=== PATIENT | male | born 1950 | race Caucasian/White ===

== ENCOUNTER 2025-05-31 17:14 | Observation (INO) | payer OTHER, SELFPAY ==
[2025-05-31] VITALS (8 sets, daily range): BP systolic 114–144; BP diastolic 70–76
--- NOTE | 2025-05-31 14:26 | ED.CVA ---
History of Present Illness
<Karyn Van PA-C - Last Filed: 05/31/25 20:50>
General
Chief Complaint: CVA/TIA Symptoms
Source: patient
Exam Limitations: none
Time Seen by Provider: 05/31/25 14:05
Nursing documentation reviewed up to this point in time: agreed with
Onset of Stroke Symptoms
Onset of symptoms known: Yes
Date of onset of symptoms: 05/31/25
History of Present Illness
History of Present Illness:
Patient is a 75-year-old male with history hypertension, hyperlipidemia, diabetes, pachymeningitis who presents to the emergency department after episode of transient slurred speech and right-sided facial droop this morning. Patient states that his
daughter came over to his house around 11:30 AM and noticed that he had a right sided facial droop and was slurring his words. Patient's returned home around noon and by that point his symptoms had improved. Patient did not notice the
symptoms himself.
They came to the emergency department for further evaluation. He is asymptomatic upon arrival.
Patient denies any recent fall or trauma. No headache or neck pain. No changes in vision, unilateral weakness in extremities, or decreased sensation. Patient denies any dizziness, ataxia, dysarthria. No recent fever or chills. He denies any
recent chest pain, shortness of breath, or palpitations. Patient has no known history of cerebrovascular disease.
Of note�patient did recently have a cochlear implant placed at the end of April. However, it has not been activated yet. That is planned for June 2025.
Review of Systems
<Karyn Van PA-C - Last Filed: 05/31/25 20:50>
Review of Systems
Allergies reviewed?: Yes
All Other Systems: ROS reviewed and negative except as documented in HPI and ROS
Phy Exam
<Karyn Van PA-C - Last Filed: 05/31/25 20:50>
Physical Exam
Physical Exam:
Vitals: Mildly hypertensive on arrival, otherwise vital signs stable. Afebrile
General: Patient is well appearing, no acute distress
Skin: Warm and dry, no rashes or lesions
Head: Normocephalic, atraumatic
Eyes: Sclera nonicteric. Pupils equal round reactive to light bilaterally. EOMs intact. No nystagmus.
Throat: Protecting airway
Neck: Normal ROM, no cervical spine tenderness, no meningismus
Cardiac: Regular rate and rhythm, no murmurs.
Pulm: Normal respiratory effort. Lungs clear bilaterally
Abdomen: Nondistended. Soft and nontender
Extremities: No evidence of cyanosis or edema. Strength 5/5 in bilateral upper and lower extremities.
Neuro: AAOx3. CN II-XII grossly intact. No facial droop or asymmetry. Normal [id number] no focal neurologic deficits.
Psychiatric: Normal affect.
Course
<Karyn Van PA-C - Last Filed: 05/31/25 20:50>
Orders/Labs/Results
Orders:
Orders
05/31/25 12:[address] [CT Head W/o Iv Contrast] Urgent
Comment:
Reason For Exam: CVA/TIA SYMPTOMS
05/31/25 14:16
Electrocardiogram (*1) Urgent
Reason for Study: TIA/Stroke
EKG- Treatment ONCE
0.9% Sodium Chloride 500 ml [Nss] 500 ml IV BOLUS
05/31/25 14:26
Complete Blood Count/With Diff Urgent
Comprehensive Metabolic Panel Urgent
Glycohemoglobin (HgbA1c) Urgent
05/31/25 15:07
CT Head & Neck Angio W/wo IV Urgent
Comment:
Reason For Exam: Transient right sided facial droop, slurred speech
05/31/25 15:16
NEUROLOGY CONSULT Urgent
Consulting Provider: Ledesma,Abraham
Was physician already notified: Yes
05/31/25 15:19
Aspirin Chewable [Low Strength Aspirin] 324 mg PO NOW STA
05/31/25 16:00
Aspirin Chewable [Low Strength Aspirin] 81 mg PO NOW STA
Atorvastatin [Lipitor] 40 mg PO NOW STA
Clopidogrel Bisulfate [Plavix] 75 mg PO NOW STA
05/31/25 16:37
Admit/Transfer Patient As Directed
Co-Sign Provider:
Level of Care: Observation services
Assign to:: Telemetry
Physician / Group: [email or web address]
Diagnosis: TIA /CVA
Reason for Telemetry: CVA/TIA
Date to Stop Telemetry: 06/03/25
Time to Stop Telemetry: 11:00
Reason for Hospitalization: Evaluation for TIA/CVA for witnessed transient episode of slurred speech and R
facial droop this morning around 11 AM a
Expected length of stay greater than two midnights?: Yes
05/31/25 16:39
Code Status As Directed
Resuscitation Status: Full Code
05/31/25 17:49
Acetaminophen [Tylenol/Feverall] 650 mg RECTAL Q4HPRN PRN
Acetaminophen [Tylenol] 650 mg PO Q4HPRN PRN
Acetaminophen [Tylenol] 650 mg PO Q6HPRN PRN mild pain
Dextrose 50%-Water [Dextrose 50% Syringe] 12.5 grams IV [id number] PRN
Glucagon [GlucaGen] 1 mg IM PRN PRN
05/31/25 17:49
Echo 2D MMode Color/Doppler Routine
Reason for Study: stroke/TIA
Case Management Consult ONCE
Case Management Consult: Discharge Planning
Comment: stroke/tia
DIETARY IP CONSULT Routine
Reason for Consult: stroke/TIA
Assistant Pastry Chef Urgent
MR Brain Without Contrast Routine
Comment:
Reason For Exam: stroke/TIA
Recent pill cam endoscopy?: No
Activity As Directed
Activity Level: With Assistance
Bedside Glucose Monitoring As Directed
Frequency: AC&HS
Additional Instructions:: Change to q6h if pt on TPN, tube feeding or not eating
NIH Stroke Scale As Directed
Directions: Per protocol
Comment: every shift and with any change in condition or mental status
Neurological Checks As Directed
Frequency: q4h
Additional Instructions:: q4h x 24h upon admission to the floor, then qshift & with any change in condition
and mental status
Patient Education As Directed
Type: Stroke education packet
Comment: provide to patient and family
Pneumatic Compression Sleeves As Directed
Type: Knee high
Vital Signs As Directed
Frequency: Per unit guidelines
Call for:: BP greater than 180/105 mmHg or less than 100/60 mmHg
Ot Eval And Treat Routine
Pt Eval And Treat Routine
Activity Level: With Assistance
Speech Therapy Eval & Treat Routine
DX Deep Vein Thrombosis Video Routine
05/31/25 22:00
insulin glargine [Lantus Solostar U-100 Insulin] 10 unit SC HS
06/01/25 06:00
Cardiovascular Evaluation IN AM
Comprehensive Metabolic Panel Routine
Glycohemoglobin (HgbA1c) IN AM
06/01/25 07:30
Insulin Aspart Corrective Low [Novolog Flexpen-Low Resistance] See Protocol SC AC
06/01/25 08:00
Aspirin Chewable [Low Strength Aspirin] 81 mg PO DAILY
Clopidogrel Bisulfate [Plavix] 75 mg PO DAILY
Cyanocobalamin [Vitamin B-12] 500 mcg PO DAILY
06/01/25 18:00
Atorvastatin [Lipitor] 40 mg PO QPM
06/03/25 11:00
DC Protocol for Telemetry ONCE
Abnormal Lab Results
05/31/25
14:26
RBC 4.67 L 10^6/uL
(4.70-6.10)
MCH 31.5 H pg
(27.0-31.0)
Absolute Monos (auto) 0.8 H 10^3/uL
(0.1-0.6)
Glucose 161 H mg/dl
(70-99)
05/31/25 14:26
05/31/25 14:26
Vital Signs
Initial and Last Documented VS:
Initial Vital Signs
Temp Pulse Resp BP Pulse Ox
98.8 F 71 18 143/72 99
05/31/25 12:18 05/31/25 12:18 05/31/25 12:18 05/31/25 12:18 05/31/25 12:18
Last Documented Vital Signs
Temp Pulse Resp BP Pulse Ox
98.1 F 74 14 144/75 98
05/31/25 19:35 05/31/25 19:35 05/31/25 19:35 05/31/25 19:35 05/31/25 19:35
<Austen Sanchez, - Last Filed: 05/31/25 15:19>
Orders/Labs/Results
Orders:
Orders
05/31/25 12:[address] [CT Head W/o Iv Contrast] Urgent
Comment:
Reason For Exam: CVA/TIA SYMPTOMS
05/31/25 14:16
Electrocardiogram (*1) Urgent
Reason for Study: TIA/Stroke
EKG- Treatment ONCE
0.9% Sodium Chloride 500 ml [Nss] 500 ml IV BOLUS
05/31/25 14:26
Complete Blood Count/With Diff Urgent
Comprehensive Metabolic Panel Urgent
Glycohemoglobin (HgbA1c) Urgent
05/31/25 15:07
CT Head & Neck Angio W/wo IV Urgent
Comment:
Reason For Exam: Transient right sided facial droop, slurred speech
05/31/25 15:16
NEUROLOGY CONSULT Urgent
Consulting Provider: Abraham Ledesma
Was physician already notified: Yes
05/31/25 15:19
Aspirin Chewable [Low Strength Aspirin] 324 mg PO NOW STA
05/31/25 16:00
Aspirin Chewable [Low Strength Aspirin] 81 mg PO NOW STA
Atorvastatin [Lipitor] 40 mg PO NOW STA
Clopidogrel Bisulfate [Plavix] 75 mg PO NOW STA
05/31/25 16:37
Admit/Transfer Patient As Directed
Co-Sign Provider:
Level of Care: Observation services
Assign to:: Telemetry
Physician / Group: [email or web address]
Diagnosis: TIA /CVA
Reason for Telemetry: CVA/TIA
Date to Stop Telemetry: 06/03/25
Time to Stop Telemetry: 11:00
Reason for Hospitalization: Evaluation for TIA/CVA for witnessed transient episode of slurred speech and R
facial droop this morning around 11 AM a
Expected length of stay greater than two midnights?: Yes
05/31/25 16:39
Code Status As Directed
Resuscitation Status: Full Code
05/31/25 17:49
Acetaminophen [Tylenol/Feverall] 650 mg RECTAL Q4HPRN PRN
Acetaminophen [Tylenol] 650 mg PO Q4HPRN PRN
Acetaminophen [Tylenol] 650 mg PO Q6HPRN PRN mild pain
Dextrose 50%-Water [Dextrose 50% Syringe] 12.5 grams IV [id number] PRN
Glucagon [GlucaGen] 1 mg IM PRN PRN
05/31/25 17:49
Echo 2D MMode Color/Doppler Routine
Reason for Study: stroke/TIA
Case Management Consult ONCE
Case Management Consult: Discharge Planning
Comment: stroke/tia
DIETARY IP CONSULT Routine
Reason for Consult: stroke/TIA
Assistant Pastry Chef Urgent
MR Brain Without Contrast Routine
Comment:
Reason For Exam: stroke/TIA
Recent pill cam endoscopy?: No
Activity As Directed
Activity Level: With Assistance
Bedside Glucose Monitoring As Directed
Frequency: AC&HS
Additional Instructions:: Change to q6h if pt on TPN, tube feeding or not eating
NIH Stroke Scale As Directed
Directions: Per protocol
Comment: every shift and with any change in condition or mental status
Neurological Checks As Directed
Frequency: q4h
Additional Instructions:: q4h x 24h upon admission to the floor, then qshift & with any change in condition
and mental status
Patient Education As Directed
Type: Stroke education packet
Comment: provide to patient and family
Pneumatic Compression Sleeves As Directed
Type: Knee high
Vital Signs As Directed
Frequency: Per unit guidelines
Call for:: BP greater than 180/105 mmHg or less than 100/60 mmHg
Ot Eval And Treat Routine
Pt Eval And Treat Routine
Activity Level: With Assistance
Speech Therapy Eval & Treat Routine
DX Deep Vein Thrombosis Video Routine
05/31/25 22:00
insulin glargine [Lantus Solostar U-100 Insulin] 10 unit SC HS
06/01/25 06:00
Cardiovascular Evaluation IN AM
Comprehensive Metabolic Panel Routine
Glycohemoglobin (HgbA1c) IN AM
06/01/25 07:30
Insulin Aspart Corrective Low [Novolog Flexpen-Low Resistance] See Protocol SC AC
06/01/25 08:00
Aspirin Chewable [Low Strength Aspirin] 81 mg PO DAILY
Clopidogrel Bisulfate [Plavix] 75 mg PO DAILY
Cyanocobalamin [Vitamin B-12] 500 mcg PO DAILY
06/01/25 18:00
Atorvastatin [Lipitor] 40 mg PO QPM
06/03/25 11:00
DC Protocol for Telemetry ONCE
Abnormal Lab Results
05/31/25
14:26
RBC 4.67 L 10^6/uL
(4.70-6.10)
MCH 31.5 H pg
(27.0-31.0)
Absolute Monos (auto) 0.8 H 10^3/uL
(0.1-0.6)
Glucose 161 H mg/dl
(70-99)
05/31/25 14:26
05/31/25 14:26
Vital Signs
Initial and Last Documented VS:
Initial Vital Signs
Temp Pulse Resp BP Pulse Ox
98.8 F 71 18 143/72 99
05/31/25 12:18 05/31/25 12:18 05/31/25 12:18 05/31/25 12:18 05/31/25 12:18
Last Documented Vital Signs
Temp Pulse Resp BP Pulse Ox
98.1 F 74 14 144/75 98
05/31/25 19:35 05/31/25 19:35 05/31/25 19:35 05/31/25 19:35 05/31/25 19:35
<Karyn Van PA-C - Last Filed: 05/31/25 20:50>
MDM/Problems Addressed
Differential Diagnosis Includes:
Not limited to: TIA/CVA, brain mass, Hoffmann's palsy, etc.
MDM/Problems Addressed:
75-year-old male presenting after approximately 30-minute episode of reported right-sided facial droop and slurred speech. Symptoms completely resolved by arrival to ED. No recent head trauma. Vitals stable on arrival. On exam, patient is
well-appearing and in no distress. There is no evidence of head or neck trauma. Cardio/pulmonary assessment unremarkable. He is alert and oriented x 3 without any focal neurologic deficits. I do not appreciate any slurred speech or facial droop
on my exam. He has equal strength and normal cerebellar exam. NIH scale of 0.
Symptoms concerning for TIA. Noncontrast head CT was obtained in triage without any acute abnormalities. His lab work is unremarkable. EKG reveals normal sinus rhythm without any evidence of acute ischemia or arrhythmia. I did discuss with
neurology who was down to evaluate patient at bedside. Ultimately�with concern for TIA, will plan to admit patient for further workup including CTA head/neck, cardiac echo, etc.
Patient given ASA, Plavix, Lipitor in emergency department under direction of neurology. Patient accepted to hospitalist service in stable condition for evaluation and management.
Chronic conditions affecting care:
Hypertension, diabetes
Acute Exacerbation and/or Progression of Chronic Illness:
N/A
<Karyn Van PA-C - Last Filed: 05/31/25 20:50>
*Radiology
Radiology exam reviewed: radiology read reviewed
*Pulse Oximetry
SaO2: 99
Oxygen Mode of Delivery: Room air
Patient hypoxic: no
*EKG
Interpreted by ED Provider?: Yes
EKG Intrepretation Date: 05/31/25
Interpretation: abnormal
Comparison EKG: no comparison EKG present
Heart Rate: 71
Rate: normal
Rhythm: sinus
[place]: normal axis
Interval: normal QT interval
QRS Pattern: low voltage
Ischemia: non-specific ST changes
*Automotive Worker Foreman Interpretation
Rate: Automotive Worker Foreman- N/A
*Critical Care Note
Total Time (30-74mins, 75-104mins- exclusive of procedures): Not Applicable
<Karyn Van PA-C - Last Filed: 05/31/25 20:50>
Patient Management
Discussion with other providers: Hospitalist and Fermentation Operator (Case discussed with neurology)
ED Attending Note
<Karyn Van PA-C - Last Filed: 05/31/25 20:50>
-
Portions of this chart may have been created with voice recognition software.� Occasional wrong word or��sound alike� substitutions may have occurred due to the inherent limitations of voice recognition software.
<Austen Sanchez DO - Last Filed: 05/31/25 15:19>
ED Attending Note
Patient seen and examined by attending physician: Yes
I performed the substantive portion of visit, reviewed & personally made and approve the management plan that is documented in note by myself or DENNY.: Yes
Discharge Plan
Departure
Patient Disposition: Admit
Date of Disposition: 05/31/25
Time of Disposition: 16:00
Presentation/result/management discussed w/ accepting MD/DO: Hospitalist
Discharge Problem:
TIA (transient ischemic attack)
Interventions
Interventions:
*Risk Screen - Suicide Last Done: 05/31/25 17:51
*General Assessment Last Done: 05/31/25 12:27
*Neglect/Abuse Screening Last Done: 05/31/25 12:27
*ED COVID-19 Vaccine History Last Done: 05/31/25 17:51
*ED Influenza Vaccine History Last Done: 05/31/25 12:27
[facility] Fall Risk Assessment Tool Last Done: 05/31/25 12:38
*Nursing Disposition Last Done: 05/31/25 17:31
ED- Pulmonary Assessment Last Done: 05/31/25 15:30
ED- Neurological Assessment Last Done: 05/31/25 12:38
ED- Cardiac Assessment Last Done: 05/31/25 12:38
ED Swallowing Screen Last Done: 05/31/25 12:38
Discharge Date and Time
Discharge Date/Time: 05/31/25 17:47
[2025-05-31] MEDS: NSS 500 IV (14:46)
[2025-05-31 14:49] LABS: Hematocrit 42.2 % (39.0-52.0); Hemoglobin 14.7 g/dL (13.0-18.0); Mean Corp Hgb Conc. 34.8 g/dL (33.0-37.0); Mean Corpuscular Volume 90.4 fL (80.0-94.0); Nucleated Red Blood Cells % 0 % (-); Platelet Count 340 10^3/uL (130-400); Red Cell Dist. Width 12.7 % (11.5-14.5)
[2025-05-31 15:05] LABS: ALT (SGPT) 31 U/L (0-50); AST (SGOT) 22 U/L (17-59); Albumin 4.6 g/dl (3.5-5.0); Alkaline Phosphatase 67 U/L (38-126); Blood Urea Nitrogen 15 mg/dl (9-20); Calcium 9.6 mg/dl (8.4-10.2); Carbon Dioxide 25 mmol/L (22-30); Chloride 105 mmol/L (98-107); Glucose 161 mg/dl (70-99); Potassium 4.2 mmol/L (3.5-5.1); Sodium 138 mmol/L (135-145); Total Protein 7.4 g/dl (6.3-8.2); eGFR > 60.00
--- NOTE | 2025-05-31 15:22 | CON.NEURO4 ---
Consultation - Neurology 4
-
CONSULTING PHYSICIAN: Dr. Abraham Ledesma
REFERRING PHYSICIAN: Karyn Van PA-C
DICTATED BY: Dr. Abraham Ledesma
DATE/TIME OF REQUEST: 05/31/2025
DATE/TIME OF CONSULTATION: 05/31/2025
Reason for Consultation: Slurred speech and right-sided facial droop.
ASSESSMENT AND PLAN:
Patient is a 75 years old male with history hypertension, hyperlipidemia, diabetes, who presents to the emergency department after episode of transient slurred speech and right-sided facial droop this morning. The the patient had a transient
episode of slurred speech and right-sided facial droop at around 11 AM this morning that lasted about half an hour, which was noticed by his daughter. The patient symptoms resolved and he returned to his baseline. The patient denies any focal
numbness or weakness of arms and legs or any problem with walking. 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 The patient is very hard of hearing.
NIHSS = 0. The patient was not a candidate for thrombolytic therapy as he had returned to his baseline. The patient was not on antiplatelet at home.
The history was obtained from the patient and his .
The patient appears to have had a transient ischemic attack. The risk factors include hypertension, hyperlipidemia and diabetes. Their workup is in progress for TIA/stroke.
. CT head does not show acute intracranial abnormality.
. CTA head and neck.
. MRI brain without IV contrast
. Echocardiogram.
. Permissive hypertension SBP < 220
. Aspirin 81 mg daily.
. Plavix 75 mg daily.
. Atorvastatin 40 mg daily.
History of Present Illness:
Patient is a 75-year-old male with history hypertension, hyperlipidemia, diabetes, who presents to the emergency department after episode of transient slurred speech and right-sided facial droop this morning.
The the patient had a transient episode of slurred speech and right-sided facial droop at around 11 AM this morning that lasted about half an hour, which was noticed by his daughter. The patient symptoms resolved and he returned to his baseline.
The patient denies any focal numbness or weakness of arms and legs or any problem with walking. 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 The patient is very hard of hearing.
NIHSS = 0. The patient was not a candidate for thrombolytic therapy as he had returned to his baseline.
The history was obtained from the patient and his .
Past Medical History: Hypertension, hyperlipidemia and diabetes,
Social History:
Alcohol: None
Drug: None
Review of Systems:
The 10 point review of system was negative aside from as given the above history of present illness.
Neurologic Examination:
Alert and oriented x 3,
Speech is clear,
Cranial nerves II to XII grossly intact except that the patient is hard of hearing.
The visual yu are grossly full to confrontation bilaterally,
The motor strength is grossly 5/5 bilaterally in upper and lower extremities,
Sensation grossly intact,
The cerebellar examination does not show limb ataxia.
Medications
-
Active Medications
Generic Name Dose Route Start Last Admin
Trade Name Freq PRN Reason Stop Dose Admin
Acetaminophen 650 mg 05/31/25 17:49
Acetaminophen 650 Mg Rectal Suppository RECTAL 06/28/25 17:48
Q4HPRN PRN
EMANUEL, mild pain, or temp >100.4F
Acetaminophen 650 mg 05/31/25 17:49
Acetaminophen 325 Mg Tablet PO 06/28/25 17:48
Q4HPRN PRN
EMANUEL, mild pain, or temp >100.4F
Aspirin 81 mg 06/01/25 08:00
Aspirin 81 Mg Chewable Tablet PO 06/29/25 07:59
DAILY ISABEL
Atorvastatin Calcium 40 mg 06/01/25 18:00
Atorvastatin (Lipitor) 40 Mg Tablet PO 06/29/25 17:59
QPM ISABEL
Clopidogrel Bisulfate 75 mg 06/01/25 08:00
Clopidogrel 75 Mg Tablet PO 06/29/25 07:59
DAILY ISABEL
Cyanocobalamin (Vitamin B12) 500 mcg 06/01/25 08:00
Cyanocobalamin (Vitamin B-12) 500 Mcg Tablet PO 06/29/25 07:59
DAILY ISABEL
Dextrose 12.5 grams 05/31/25 17:49
Dextrose 50% (0.5 Grams/Ml) 50 Ml Syringe IV 06/28/25 17:48
[id number] PRN
hypoglycemia
Protocol
Glucagon 1 mg 05/31/25 17:49
Glucagon 1 Mg Vial IM 06/28/25 17:48
PRN PRN
hypoglycemia
Protocol
Insulin Glargine 10 units/ 0.1 mls @ 0 mls/hr 05/31/25 22:00
Device SC 06/28/25 21:59
HS ISABEL
As Directed
Insulin Aspart 0 units 06/01/25 07:30
Insulin Aspart Low Resistance 300 Units/3 Ml Pen.Injctr SC 06/29/25 07:29
AC ISABEL
Protocol
Home Medications
�Medication �Instructions �Recorded
acetaminophen 325 mg tablet 650 mg PO Q6HPRN PRN mild pain 05/31/25
(Tylenol)
cholecalciferol (vitamin D3) 25 25 mcg PO DAILY Supplement 05/31/25
mcg (1,000 unit) tablet (Vitamin
D3)
cyanocobalamin (vitamin B-12) 500 500 mcg PO DAILY Supplement 05/31/25
mcg tablet
insulin glargine 100 unit/mL (3 10 unit SC HS Diabetes 05/31/25
mL) subcutaneous pen (Lantus
Solostar U-100 Insulin)
losartan 50 mg tablet 50 mg PO HS Blood Pressure 05/31/25
metformin 500 mg tablet 500 mg PO QPM Diabetes 05/31/25
mirabegron 50 mg tablet,extended 50 mg PO DAILY Urinary Issue 05/31/25
release 24 hr (Myrbetriq)
pyridoxine (vitamin B6) 50 mg 50 mg PO DAILY Supplement 05/31/25
tablet
rosuvastatin 5 mg tablet (Crestor) 5 mg PO HS High Cholesterol 05/31/25
semaglutide 1 mg/dose (4 mg/3 mL) 1 mg SC WE Diabetes 05/31/25
subcutaneous pen injector (Ozempic)
silodosin 8 mg capsule 8 mg PO DAILY Urinary Issue 05/31/25
trospium 60 mg capsule,extended 60 mg PO DAILY Urinary Issue 05/31/25
release 24 hr
Vital Signs and Labs
-
Vital Signs and Labs:
Vital Signs
Temp Pulse Resp BP Pulse Ox
36.4 C 77 18 139/70 97
05/31/25 18:00 05/31/25 18:00 05/31/25 18:00 05/31/25 18:00 05/31/25 18:21
Lab Results
05/31/25 14:26
05/31/25 14:26
Sodium 138 mmol/L (135-145) 05/31/25 14:26
Potassium 4.2 mmol/L (3.5-5.1) 05/31/25 14:26
BUN 15 mg/dl (9-20) 05/31/25 14:26
Glucose 161 mg/dl (70-99) H 05/31/25 14:26
Calcium 9.6 mg/dl (8.4-10.2) 05/31/25 14:26
[2025-05-31] MEDS: LIPITOR 40 MG PO (16:18)
[2025-05-31] MEDS: LOW STRENGTH ASPIRIN 81 MG PO (16:18)
[2025-05-31] MEDS: PLAVIX 75 MG PO (16:18)
--- NOTE | 2025-05-31 16:20 | HPS.HSE ---
Family Physician
-
Family Physician: Nazario Mo MD
Chief Complaint
-
episode of transient slurred speech and right-sided facial droop this morning.
History of Present Illness
75M
PMH: HTN, DM, pachymeningitis seen at ER:
pw episode of transient slurred speech and right-sided facial droop this morning.
- Patient states that his daughter came over to his house around 11:30 AM and noticed that he had a right sided facial droop and was slurring his words.
- Patient's returned home around noon and by that point his symptoms had improved.
- Patient did not notice the symptoms himself.
They came to the emergency department for further evaluation.
He is asymptomatic upon arrival.
Medical History
Past Medical History
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
Past Surgical History: Reports Other
Social History
Alcohol: None
Drug: None
Personal:
Living: With Family
Family History
Family History: Not pertinent
Allergies / Home Medications
Allergies reflects when Allergies were last updated in [employer].
Home Medications with original date entered in [employer]
Allergy/Medication List:
Allergies
Allergy/AdvReac Type Severity Reaction Status Date / Time
Penicillins Allergy Unknown Verified 05/31/25 12:25
Home Medications
acetaminophen 325 mg tablet (Tylenol) 650 mg PO Q6HPRN PRN mild pain 05/31/25
cholecalciferol (vitamin D3) 25 mcg (1,000 unit) tablet (Vitamin D3) 25 mcg PO DAILY Supplement 05/31/25
cyanocobalamin (vitamin B-12) 500 mcg tablet 500 mcg PO DAILY Supplement 05/31/25
insulin glargine 100 unit/mL (3 mL) subcutaneous pen (Lantus Solostar U-100 Insulin) 10 unit SC HS Diabetes 05/31/25
losartan 50 mg tablet 50 mg PO HS Blood Pressure 05/31/25
metformin 500 mg tablet 500 mg PO QPM Diabetes 05/31/25
mirabegron 50 mg tablet,extended release 24 hr (Myrbetriq) 50 mg PO DAILY Urinary Issue 05/31/25
pyridoxine (vitamin B6) 50 mg tablet 50 mg PO DAILY Supplement 05/31/25
rosuvastatin 5 mg tablet (Crestor) 5 mg PO HS High Cholesterol 05/31/25
semaglutide 1 mg/dose (4 mg/3 mL) subcutaneous pen injector (Ozempic) 1 mg SC WE Diabetes 05/31/25
silodosin 8 mg capsule 8 mg PO DAILY Urinary Issue 05/31/25
trospium 60 mg capsule,extended release 24 hr 60 mg PO DAILY Urinary Issue 05/31/25
Review of Systems
-
Constitutional: Reports No Symptoms
EENT: Reports No Symptoms
Respiratory: Reports No Symptoms
Cardiac: Reports No Symptoms
Abdomen/GI: Reports No Symptoms
: Reports No Symptoms
Musculoskeletal: Reports No Symptoms
Skin: Reports No Symptoms
Neurological: Reports No Symptoms
Endocrine: Reports No Symptoms
Hematologic/Lymphatic: Reports No Symptoms
Psych: Reports No Symptoms
Physical Exam
Vital Signs
Vital Signs
Temp Pulse Resp BP Pulse Ox
98.8 F 78 13 136/73 98
05/31/25 12:18 05/31/25 15:42 05/31/25 15:42 05/31/25 15:00 05/31/25 15:42
Physical Exam
General: Well Developed, Well Nourished and No Apparent Distress
HEENT: NormoCephalic, Moist mucous membranes and Atraumatic
Respiratory: Clear
Cardiac: S1/S2 and Regular Rhythm; No Murmur or Rub
GI: Soft, Non Tender, Non Distended and Normal Bowel Sounds; No Organomegaly
Rectal: Deferred by Provider
Musculoskeletal: No Clubbing, No Cyanosis and No Edema
Skin: No Rash
Neuro: Nonfocal/grossly intact
Laboratory Results
-
05/31/25 14:26
05/31/25 14:26
Laboratory Results
Total Bilirubin 0.5 mg/dl (0.2-1.3) 05/31/25 14:26
AST 22 U/L (17-59) 05/31/25 14:26
ALT 31 U/L (0-50) 05/31/25 14:26
Alkaline Phosphatase 67 U/L (38-126) 05/31/25 14:26
Data Reviewed
-
CT Scan: Report Reviewed by me
Medical Tests (Nuc Med, Echo, EKG etc): Report Reviewed by me
Lab Data: Labs Reviewed by me
Impression/Plan
-
Vital Signs
Temp Pulse Resp BP Pulse Ox
98.8 F 78 13 136/73 98
05/31/25 12:18 05/31/25 15:42 05/31/25 15:42 05/31/25 15:00 05/31/25 15:42
05/31/25
14:26
WBC 9.0
Hgb 14.7
Plt Count 340
Sodium 138
Creatinine 0.8
eGFR > 60.00
Glucose 161 H
Total Bilirubin 0.5
AST 22
ALT 31
Alkaline Phosphatase 67
EKG
NORMAL SINUS RHYTHM
LOW VOLTAGE QRS
CANNOT RULE OUT ANTERIOR INFARCT , AGE UNDETERMINED
ABNORMAL ECG
NO PREVIOUS ECGS AVAILABLE
HCT
No acute intracranial abnormality noted.
H & N CTA pending
NO PRIOR hospitalist admission:
ASSESSMENT & PLAN
Evaluation for TIA/CVA for witnessed transient episode of slurred speech and R facial droop this morning around 11 AM about 30 Mins.
- R hand dominant
- s/p Loading dose ASA and Plavix at ER
- denies any focal numbness or weakness of all extremities
- No acute gait dysfunction
- currently at neurologically at baseline
- NIHSS = 0 upon arrival - thus not candidate for thrombolytic therapy
- NEG CT for acute intracranial abnormality.
- Pending CTA head and neck.
- MRI brain without IV contrast
- TTE in AM
- Permissive HTN SBP < 220
- c/w Aspirin 81 mg daily.
- c/.w Plavix 75 mg daily.
- switch to Atorvastatin [address] of Crestor 5 mg daily
- A1C. Lipids
- Neuro consulted
pHTN
- Permissive HTN SBP < 220
HLD
- switch to Atorvastatin [address] of Crestor 5 mg daily
Pachymeningitis
HX L cochlear implant - very hard of hearing
DVT Px: SCD
Ful code
OBS TLM
--- NOTE | 2025-05-31 17:22 | CM ---
Chart reviewed . hx of cochlear implant very [place], using the [employer] for communication
LORA Reviewed at 17:15 pm
Spoke with pt at ED bedside
Lives in [address] with 3 [place]
1st floor set up
Independent with ADLs and ambulation
no DME
PCP Dr. Herberth Mo
RX plan yes
[facility]
hx of [facility] at home after left knee surgery
no hx of SNF
DCP is to go home
can drive
CM will continue to follow up with dcp needs
[2025-05-31 18:15] LABS: Glucose - Point of Care 92 mg/dl (70-99)
[2025-05-31 21:14] LABS: Glucose - Point of Care 90 mg/dl (70-99)
[2025-05-31] MEDS: LANTUS 0.1 UNITS SC (21:14)
[2025-06-01] VITALS (9 sets, daily range): BP systolic 98–157; BP diastolic 61–78; PULSE 73; O2SAT 95
[2025-06-01 07:59] LABS: Glucose - Point of Care 104 mg/dl (70-99)
[2025-06-01] MEDS: VITAMIN B-12 500 MCG PO (08:13)
[2025-06-01] MEDS: LOW STRENGTH ASPIRIN 81 MG PO (08:13)
[2025-06-01] MEDS: PLAVIX 75 MG PO (08:13)
[2025-06-01 08:21] LABS: ALT (SGPT) 32 U/L (0-50); AST (SGOT) 26 U/L (17-59); Albumin 4.5 g/dl (3.5-5.0); Alkaline Phosphatase 43 U/L (38-126); Blood Urea Nitrogen 12 mg/dl (9-20); Calcium 9.8 mg/dl (8.4-10.2); Carbon Dioxide 25 mmol/L (22-30); Chloride 105 mmol/L (98-107); Glucose 110 mg/dl (70-99); HDL Cholesterol 43 mg/dl; LDL Cholesterol, Calculated 53 mg/dl; Potassium 4.4 mmol/L (3.5-5.1); Sodium 137 mmol/L (135-145); Total Protein 6.9 g/dl (6.3-8.2); Very Low Density Lipoprotein 28 mg/dl (0-30); eGFR > 60.00
[2025-06-01 08:48] LABS: Glycohemoglobin (HgbA1c) 7.1 % (4.0-5.9)
--- NOTE | 2025-06-01 09:26 | W.PN.NEURO.1 ---
Addendum entered and electronically signed by Abraham Ledesma MD 06/01/25 19:24:
I saw and examined the patient today along with the nurse practitioner Zita Patterson. I agree with the the nurse practitioner Zita Patterson's assessment and the management plan. I personally performed the medical decision making of this
encounter and my assessment and management plan is given below.
The patient is a 75 years old male, who presented with slurred speech and right-sided facial droop which resolved in about half an hour. The patient likely had a transient ischemic attack. CT of the head and CTA of head and neck were unremarkable.
MRI of the brain is pending.
Continue aspirin Plavix and atorvastatin.
Original Note:
Today's Communication / Plan
-
-check MRI brain without contrast to evaluate for stroke
-continue ASA 81mg and Plavix 75 mg daily for 21 days followed by monotherapy with ASA
-current LDL 53 with goal <70, continue Atorvastatin 40 mg daily
-PT/OT/ST evaluations
-DVT prophylaxis
-continue neurochecks and NIHSS per unit guidelines
-stroke education packet
Neuro Assessment/Plan
Assessment
Patient is a 75 years old male with history hypertension, hyperlipidemia, diabetes, who presents to the emergency department after episode of transient slurred speech and right-sided facial droop this morning. The the patient had a transient
episode of slurred speech and right-sided facial droop at around 11 AM this morning that lasted about half an hour, which was noticed by his daughter. The patient symptoms resolved and he returned to his baseline. The patient denies any focal
numbness or weakness of arms and legs or any problem with walking. 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 The patient is very hard of hearing.
NIHSS = 0. The patient was not a candidate for thrombolytic therapy as he had returned to his baseline. The patient was not on antiplatelet at home.
The history was obtained from the patient and his .
The patient appears to have had a transient ischemic attack. The risk factors include hypertension, hyperlipidemia and diabetes. Their workup is in progress for TIA/stroke.
CT head does not show acute intracranial abnormality.
CTA head and neck does not show significant vascular occlusion, aneurysm or dissection.
MRI brain without IV contrast pending
Plan
-check MRI brain without contrast to evaluate for stroke
-continue ASA 81mg and Plavix 75 mg daily for 21 days followed by monotherapy with ASA
-current LDL 53 with goal <70, continue Atorvastatin 40 mg daily
-PT/OT/ST evaluations
-DVT prophylaxis
-continue neurochecks and NIHSS per unit guidelines
-stroke education packet
All questions enouraged and answered, plan of care discussed with Dr. Ledesma
Subjective/Objective
Subjective Data
Date of Service: June 01, 2025
No acute overnight events.
Objective Data
Vital Signs
Temp Pulse Resp BP Pulse Ox
97.7 F 77 16 138/78 95
06/01/25 07:00 06/01/25 07:00 06/01/25 07:00 06/01/25 07:00 06/01/25 07:00
Lab Results
05/31/25 14:26
06/01/25 07:14
Sodium 137 mmol/L (135-145) 06/01/25 07:14
Potassium 4.4 mmol/L (3.5-5.1) 06/01/25 07:14
BUN 12 mg/dl (9-20) 06/01/25 07:14
Glucose 110 mg/dl (70-99) H 06/01/25 07:14
Calcium 9.8 mg/dl (8.4-10.2) 06/01/25 07:14
LDL Cholesterol, Calc 53 mg/dl 06/01/25 07:14
Patient Allergies
Penicillins Allergy (Verified 05/31/25 12:25)
Unknown
Physical Exam
-
General: Appears Stated Age
HEENT: Normocephalic and Atraumatic
Neck: Full Range of Motion
Respiratory: No Dyspnea
Cardiac: No JVD
GI: Non-distended
Skin: Unremarkable
Extremities: No Clubbing, No Cyanosis and No Edema
Psych: Unremarkable
Extended Neurological Exam
Mood & Affect: Mood Unremarkable
Attention Span & Concentration: Awake, Alert and Interactive
Speech: Quality Unremarkable, Quantity Unremarkable and Rate of Production Unremarkable
Cranial Nerve VII: Facial Symmetry: Normal Facial Symmetry
Cranial Nerve VIII: Hearing: Unremarkable Hearing to Normal Conversational Volume
Muscle Strength, Overall: Full Throughout
Data Reviewed
-
CT-A: Report Reviewed and Image Reviewed
CT Head: Report Reviewed and Image Reviewed
MRI Head: Ordered
Medical Test Reports: Report Reviewed
Labs: Report Reviewed
Lipid Profile: Report Reviewed
Reviewed with: Physician, Patient and Family
Old Records: Summarized
--- NOTE | 2025-06-01 10:12 | W.PN.HOSP.TC ---
Addendum entered and electronically signed by Lj Darby MD 06/02/25 17:22:
Correction
Total time spent to see the patient on the floor, examine the patient, review data and lab results, discuss treatment plan with patient, nursing staff around 45 minutes.
Original Note:
Today's Communication/Plan
-
Discharge after MRI and echo results
Assessment / Plan
Assessment / Plan
Transient right facial droop and transient dysarthria
- R hand dominant
- S/p Loading dose ASA and Plavix at ER
- NIHSS = 0 upon arrival - thus not candidate for thrombolytic therapy
- Head CT neg acute intracranial abnormality, CTA head and neck also neg
- Appreciate neurology input, recommend aspirin and Plavix for 21 days through 06/20, then just aspirin alone
- Await MRI brain, echo
- A1C 7.1, LDL 53, continue statin
- Discharge today after MRI & echo results
HLD
- continue statin
Pachymeningitis
HX L cochlear implant - very hard of hearing
DVT prophylaxis�SCDs
Full code
Total time spent to see the patient on the floor, examine the patient, review data and lab results, discuss treatment plan with patient, nursing staff around 85 minutes.
Physical Exam
General: No acute distress
HEENT: Normocephalic, Atraumatic, EOMI, MMM
Respiratory: Clear to Auscultation bilaterally
Cardiac: Normal S1/S2, Regular Rate and Rhythm
GI: Soft, Nontender, Nondistended, Normal Bowel Sounds
Extremities: No Clubbing, Cyanosis, or Edema
Neuro: Nonfocal/Grossly Intact
Psych: Calm, Cooperative
Derm: No Visible lesions
Anticipated Discharge: Today
Subjective/Interval History
-
Date of Service: June 01, 2025
No recurrence of dysarthria or facial droop. Denies chest pain, denies shortness of breath. No fever, no vomiting.
Objective Data
-
Labs:
Laboratory Results
06/01/25
07:14
Sodium 137
Potassium 4.4
Chloride 105
Carbon Dioxide 25
BUN 12
Creatinine 1.0
Glucose 110 H
Calcium 9.8
Total Bilirubin 0.9
AST 26
ALT 32
Alkaline Phosphatase 43
Vital Signs:
Vital Signs
Temp Pulse Resp BP Pulse Ox
97.7 F 77 16 138/78 95
06/01/25 07:00 06/01/25 07:00 06/01/25 07:00 06/01/25 07:00 06/01/25 07:00
I&O
05/31/25 06/01/25 06/02/25
06:59 06:59 06:59
Intake Total 480 / 480
Balance 480 / 480
--- NOTE | 2025-06-01 11:36 | PTOTSP ---
Pt presents to OT with grossly intact vision and cognition; UE AROM, strength, sensation and coordination WNL and symmetrical. Currently at mod I/I level with basic self care, transfers and functional mobility in room without AD. No further skilled
OT indicated at this time
--- NOTE | 2025-06-01 11:44 | CM ---
patient seen at bedside
OBS status
CM consult completed
PT/OT eval - no needs
PLAN: Home no needs
to transport
[2025-06-01 11:58] LABS: Glucose - Point of Care 111 mg/dl (70-99)
[2025-06-01 17:12] LABS: Glucose - Point of Care 128 mg/dl (70-99)
[2025-06-01] MEDS: LIPITOR 40 MG PO (17:14)
--- NOTE | 2025-06-01 17:23 | W.PN.UPDATE ---
Update Note
Progress Note Update
For billing purposes
[2025-06-01 21:52] LABS: Glucose - Point of Care 123 mg/dl (70-99)
[2025-06-01] MEDS: LANTUS 0.1 UNITS SC (21:52)
[2025-06-02 04:00] VITALS: BP 124/74
--- NOTE | 2025-06-02 07:54 | W.PN.HOSP.TC ---
Today's Communication/Plan
-
Discharge today
Assessment / Plan
Assessment / Plan
Transient right facial droop and transient dysarthria
- R hand dominant
- S/p Loading dose ASA and Plavix at ER
- NIHSS = 0 upon arrival - thus not candidate for thrombolytic therapy
- Head CT neg acute intracranial abnormality, CTA head and neck also neg
- Appreciate neurology input, recommend aspirin and Plavix for 21 days through 06/20, then just aspirin alone
- Echo within normal limits
- Patient has a cochlear implant, which would create artifact for his brain MRI, in conjunction with the risk of increased pain - discussed these concerns with patient
- Per neurology, since the brain MRI would not oil changer, brain MRI was canceled due to above risks
- A1C 7.1, LDL 53, continue statin
- Discharge today
HLD
- continue statin
Pachymeningitis
HX L cochlear implant - very hard of hearing
DVT prophylaxis�SCDs
Full code
Physical Exam
General: No acute distress
HEENT: Normocephalic, Atraumatic, EOMI, MMM
Respiratory: Clear to Auscultation bilaterally
Cardiac: Normal S1/S2, Regular Rate and Rhythm
GI: Soft, Nontender, Nondistended, Normal Bowel Sounds
Extremities: No Clubbing, Cyanosis, or Edema
Neuro: Nonfocal/Grossly Intact
Psych: Calm, Cooperative
Derm: No Visible lesions
Anticipated Discharge: Today
Subjective/Interval History
-
Date of Service: June 02, 2025
No recurrence of dysarthria, or facial droop. Denies chest pain, denies shortness of breath. No fever, no vomiting. He is eager for discharge today.
Objective Data
-
Vital Signs:
Vital Signs
Temp Pulse Resp BP Pulse Ox
98.0 F 75 18 124/74 98
06/02/25 04:00 06/02/25 04:00 06/02/25 04:00 06/02/25 04:00 06/02/25 04:00
I&O
06/01/25 06/02/25 06/03/25
06:59 06:59 06:59
Intake Total 480 / 480 1200 / 1200
Balance 480 / 480 1200 / 1200
[2025-06-02 08:02] VITALS: BP 125/73
[2025-06-02 08:11] LABS: Glucose - Point of Care 161 mg/dl (70-99)
[2025-06-02] MEDS: VITAMIN B-12 500 MCG PO (08:24)
[2025-06-02] MEDS: LOW STRENGTH ASPIRIN 81 MG PO (08:24)
[2025-06-02] MEDS: PLAVIX 75 MG PO (08:24)
[2025-06-02 11:27] VITALS: BP 124/76
--- NOTE | 2025-06-02 17:22 | W.DCSUMMARY ---
Discharge Summary
Discharge Data
Date of Admission: 05/31/25
Date of Discharge: 06/02/25
-
Pending Results: No
Hospital Course
Discharge diagnosis:
Transient ischemic attack
Transient right facial droop and transient dysarthria
Hyperlipidemia
Controlled diabetes
Pachymeningitis
History of left cochlear implant
Consults: Neurology
Head CT:
No acute intracranial abnormality noted.
Head and neck CTA:
No significant vascular occlusion, aneurysm or dissection.
Echocardiogram:
1. Normal left ventricular systolic function.
2. Estimated ejection fraction 60 to 65%.
3. Trace mitral regurgitation.
4. Trace tricuspid regurgitation.
5. No prior study available for comparison.
Hospital course:
75-year-old male with a past medical history of hearing loss status post left cochlear implant, diabetes, and hyperlipidemia presented with transient right facial droop and transient dysarthria. Head CT and head and neck CTA were negative. Patient
was seen in conjunction with neurology for presumed transient ischemic attack. His echocardiogram was unremarkable. Neurology recommends Plavix 75 mg daily for 21 days, and aspirin 81 mg daily. Patient's LDL is 53, he can continue his home
statin. His hemoglobin A1c is 7.1, it is well-controlled.
Patient has a left cochlear implant. Brain MRI was ordered, but there were concerns of severe pain due to his cochlear implant as well as artifact from the cochlear implant. Patient was informed of these risks. Patient requested discharge. Per
neurology, since the brain MRI would not change his management, it was decided to not pursue inpatient brain MRI.
Patient did not have any recurrence of his dysarthria or right facial droop. He is medically stable and cleared by neurology for discharge. He needs to follow-up with his PCP in 1 week.
Disposition: Home self-care
Discharge planning: Required 37 minutes
Discharge Plan
-
Patient Disposition: Home (Routine Discharge)
Discharge Diagnosis/Procedures: Transient ischemic attack
Condition: Good
Diet: Low Fat, Low Cholesterol and Diabetic, Carb Controlled
Activity: As tolerated
Driving Restrictions: As prior to admission
Activity Restrictions/Additional Instructions:
- Take Plavix through 06/20, take aspirin 81 mg daily
- Follow-up with your primary care provider in 1 week
Referrals:
Herberth Mo,Nazario Link MD [Family Provider, [facility]] - in one week
Prescriptions:
New
aspirin 81 mg Tablet,Chewable
81 mg PO DAILY Qty: 30 0RF
clopidogrel 75 mg Tablet
75 mg PO DAILY 19 Days Qty: 19 0RF
Continued
silodosin 8 mg Capsule
8 mg PO DAILY
losartan 50 mg Tablet
50 mg PO HS
metformin 500 mg Tablet
500 mg PO QPM
acetaminophen [Tylenol] 325 mg Tablet
650 mg PO Q6HPRN PRN (Reason: mild pain)
cyanocobalamin (vitamin B-12) 500 mcg Tablet
500 mcg PO DAILY
pyridoxine (vitamin B6) 50 mg Tablet
50 mg PO DAILY
rosuvastatin [Crestor] 5 mg Tablet
5 mg PO HS
cholecalciferol (vitamin D3) [Vitamin D3] 25 mcg (1,000 unit) Tablet
25 mcg PO DAILY
insulin glargine [Lantus Solostar U-100 Insulin] 100 unit/mL (3 mL) Insulin Pen
10 unit SC HS
trospium 60 mg Capsule,Extended Release 24hr
60 mg PO DAILY
mirabegron [Myrbetriq] 50 mg Tablet Extended Release 24 Hr
50 mg PO DAILY
Ozempic 1 mg/dose (4 mg/3 mL) Pen Injector
1 mg SC WE
Discharge Orders:
Discharge Patient (As Directed); Ordered 06/02/25
Ordered By: Lj Darby
Discharge Date and Time
Discharge Date/Time: 06/02/25 13:00
Print Language: ITALIAN
== END 2025-06-02 13:00 | disposition home or self-care (01) ==
LOC: 4 WEST ACU 17:14
PROVIDERS: Physician Assistant; ADMITTING PHYSICIAN Internal Medicine; ATTENDING PHYSICIAN Family Medicine; CONSULT PHYSICIAN Psychiatry & Neurology Neurology; EMERGENCY PHYSICIAN Emergency Medicine; FAMILY PHYSICIAN Family Medicine
DX: G45.9 Transient cerebral ischemic attack, unspecified (principal); R29.810 Facial weakness; E78.00 Pure hypercholesterolemia, unspecified; R47.1 Dysarthria and anarthria; E11.9 Type 2 diabetes mellitus without complications; Z96.21 Cochlear implant status; I08.0 Rheumatic disorders of both mitral and aortic valves; Z88.0 Allergy status to penicillin; Z79.84 Long term (current) use of oral hypoglycemic drugs; H91.92 Unspecified hearing loss, left ear; I10 Essential (primary) hypertension; I27.20 Pulmonary hypertension, unspecified; R29.700 NIHSS score 0; Z79.899 Other long term (current) drug therapy; Z86.61 Personal history of infections of the central nervous system
CPT/HCPCS: 70450; 70496; 70498; 80053; 80061; 82962; 83036; 85025; 92523; 93005; 93306; 96360; 97161; 97165; 99285; G0378; Q9967